=== PATIENT | female | born 1960 | race Asian ===

== ENCOUNTER 2019-01-27 15:15 | Outpatient (CLI) | payer OTHER ==
--- NOTE | 2019-01-27 17:26 | MRI Report ---
Reason: PAIN IN RIGHT KNEE Procedure Date: 01/27/2019 Accession Number: [id number] / [id number] Procedure: MRI - Knee RT W/O CPT Code: FULL RESULT: EXAM: RIGHT KNEE MRI WITHOUT CONTRAST EXAM DATE: 01/27/2019 04:10 PM. CLINICAL HISTORY: Pain in right knee. COMPARISON: None. TECHNIQUE: Multiplanar, multisequence T1-weighted and fluid-sensitive sequences of the knee without contrast. Other: None. FINDINGS: Bones: No fractures or subluxations. No marrow edema. No bone lesions. Marginal osteophytosis at the margins of the patellofemoral joint. Articular Cartilage: Some focal grade 3-4 cartilage loss is seen at the lateral patellar facet and lateral trochlear groove. 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 Series 501 and 17. Medial Meniscus: Medial meniscus shows an apical tear at the superior margin of the junction of the mid body and posterior horn. Series 501 image 18, series 701 image 9. Lateral Meniscus: The lateral meniscus is intact. Cruciate Ligaments: The anterior and posterior cruciate ligaments are intact. Collateral Ligaments: The medial collateral and lateral collateral ligamentous structures are intact. Tendons: The quadriceps, patellar, semimembranosus, and popliteus tendons are unremarkable. Musculature: No edema or fatty atrophy. Other: No effusion. No popliteal cyst. No loose bodies. The medial and lateral retinacula are intact. The subcutaneous tissues and fat pads are unremarkable. IMPRESSION: 1. Some focal grade 3-4 cartilaginous loss at the lateral patellar facet and lateral trochlear groove, marginal osteophytosis also seen at this joint. 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 2. Medial meniscus shows an apical tear at the superior margin of the junction of the mid body and posterior horn. No displaced fragment. 3. Lateral meniscus, cruciates and collaterals appear unremarkable. No significant joint effusion, loose bodies or popliteal cyst. [facility]
== END 2019-01-27 15:16 | disposition home or self-care (01) ==
LOC: DI 15:15
PROVIDERS: ATTEND Family Medicine
DX: M94.261 Chondromalacia, right knee (principal); S83.241A Other tear of medial meniscus, current injury, right knee, initial encounter